=== PATIENT | male | born 1950 | race Caucasian/White ===

== ENCOUNTER 2017-05-23 11:50 | Inpatient (IN) | payer MEDICARE, MEDICAID ==
[~2017-05-23] VITALS: Ht 170.2 cm; Wt 59.0 kg
[2017-05-23 11:52] VITALS: BP 150/81
[2017-05-23] MEDS ORDERED: METFORMIN HCL500 MG PO (11:54)
[2017-05-23] MEDS ORDERED: ZOCOR20 MG PO (11:54)
[2017-05-23] MEDS ORDERED: CARVEDILOL12.5 MG PO (11:54)
[2017-05-23 12:10] LABS: ABSOLUTE BASOPHILS 0.1 thou/uL (0.0-0.2); ABSOLUTE EOSINOPHILS 0.2 thou/uL (0.0-0.7); ABSOLUTE LYMPHOCYTES 3.3 thou/uL (0.8-5.3); ABSOLUTE MONOCYTES 0.5 thou/uL (0.0-1.2); ABSOLUTE NEUTROPHILS 7.3 thou/uL (1.6-8.1); BASOPHILS 1.1 %; EOSINOPHILS 2.2 %; HEMATOCRIT 27.8 % (42.0-52.0); HEMOGLOBIN 9.1 gm/dL (14.0-18.0); LYMPHOCYTES 28.9 %; MCH 28.8 pg (26.0-34.0); MCHC 32.9 g/dL (28.0-37.0); MCV 87.5 fL (80.0-100.0); MPV 8.1 fl. (7.2-11.1); NUCLEATED RBCS 0 /100WBC; PLATELET COUNT* 322 thou/uL (150-400); POLYS 63.8 %; RBC 3.18 mil/uL (4.50-6.00); RDW-CV 16.5 % (10.5-14.5); WBC 11.4 thou/uL (4.0-11.0)
[2017-05-23 12:21] LABS: CALCIUM 8.2 mg/dL (8.5-10.1); CREATININE 2.9 mg/dL (0.6-1.3)
[2017-05-23 12:26] LABS: TOTAL BILIRUBIN 0.2 mg/dL (<0.1-1.0); TOTAL PROTEIN 7.9 g/dL (6.4-8.2)
[2017-05-23 13:34] VITALS: BP 126/73
[2017-05-23 14:13] VITALS: BP 113/70
[2017-05-23] MEDS ORDERED: ASPIR 8181 MG PO (14:17)
[2017-05-23] MEDS ORDERED: MELATONIN5 M1 PO (14:17)
--- NOTE | 2017-05-23 14:22 | NUR ---
PT ADMITTED TO ROOM 226 AROUND 1350 FOR HYPERKALEMIA AND ACUTE RENAL FAILURE. TELE SR 'S. 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 USES W/C. HAS PROSTHETIC, BUT LEFT IT AT HOME. PT HAS PERSONAL WHEELCHAIR WITH HIM ON ADMIT. PT STATES HE IS A 1PPD SMOKER AND REFUSES NICOTINE PATCH. PT STATES HE WILL GO OUTSIDE AND SMOKE WHILE A PT IN THE HOSPITAL. PT EDUCATED ON HOSPITALS SMOKING POLICY. PT STATES HE WILL BE NONCOMPLIANT WITH OUR POLICY. NO OTHER CONCERNS AT THIS TIME. CLWR. WCTM.
--- NOTE | 2017-05-23 16:10 | EKG ---
[place] [address] ELECTROCARDIOGRAM REPORT Name: ENEDINA CARY Room: [address] ADM IN .R.#: [id number] Admission: 05/23/17 Attend Phys: Ginger Walls Discharge: Date of : 54 Report #: [id number] THIS REPORT FOR: //name// [facility] ED Test Date: 2017-05-23 Test Time: 12:13:36 Pat Name: ENEDINA CARY Department: Room: [facility] Gender: Senior Staff Accountant: Mary BETHEA : 1950 Requested By: Delvin Pappas Order Number: [id number] MD: Elliot Carver Measurements Intervals [place] Rate: 89 P: 54 [place]: 167 QRS: 3 QRSD: 198 T: 73 QT: 368 QTc: 448 Interpretive Statements Sinus rhythm Probable left atrial enlargement No previous ECG available for comparison Electronically Signed On 05-23-2017 16:10:51 PRESSURE DISPATCHER by Elliot Carver [email or web address] <ELECTRONICALLY SIGNED> By: Elliot Carver MD, [facility] 05/23/17 1610 1213 1213 Elliot Carver MD, FACC /EPI
[2017-05-23 16:41] LABS: URINE BILIRUBIN NEGATIVE (Negative); URINE BLOOD TRACE (Negative); URINE CLARITY CLEAR; URINE COLOR YELLOW; URINE GLUCOSE-RANDOM TRACE (Negative); URINE KETONES NEGATIVE (Negative); URINE LEUKOCYTES-REFLEX TRACE (Negative); URINE NITRITE-REFLEX NEGATIVE (Negative); URINE PROTEIN TRACE (Negative); URINE UROBILINOGEN 0.2 E.U./dl (0.2-1.0)
--- NOTE | 2017-05-23 16:45 | NUR ---
PT NOT PROGRESSING TOWARDS GOALS THIS SHIFT. NEW ADMIT. NEW ORDER OBTAINED FOR PRN XANAX FOR PT'S AGITATION/ ANXIETY. PT COMPLIANT WITH CARE AT THIS TIME. IVF INFUSING. TELE SR W/ RATE IN THE 'S. NO OTHER CONCERNS AT THIS TIME. CLWR. WCTM.
[2017-05-23 16:48] LABS: SQUAMOUS 4-10 Moderate /LPF (0-3)
[2017-05-23 16:49] LABS: BACTERIA-REFLEX >30 Many /HPF (None Seen); CASTS None Seen /LPF (None Seen); CRYSTALS None Seen /LPF (None Seen); URINE RBC None Seen /HPF (0-2); URINE WBC-REFLEX >25 Many /HPF (0-5)
[2017-05-23 19:55] LABS: POTASSIUM 4.3 mmol/L (3.5-5.1)
[2017-05-23 20:00] VITALS: BP 108/60
[2017-05-24] VITALS: BP 116/66
--- NOTE | 2017-05-24 02:36 | NUR ---
PT ALERT ORIENTED. UP IN W/C IN ROOM. PT TRANSFERING HIMSELF IN AND OUT OF BED WITHOUT ASSIST. PT FALL RISK TOLD TO CALL FOR ASSIST. PT REPORTED A VERY LARGE BM AT SHIFT CHANGE. 1900 LABS k+4.3 AND CKMB 3.0. TELEMETRY SHOWS SR. PT REQUEST ALPRAZOLAM FOR HS. PT RESTING QUIETLY AFTER ALPRAZOLAM. WILL CONTINUE TO MONITOR.
--- NOTE | 2017-05-24 02:46 | NUR ---
PT NPO AT [place] FOR RENAL US IN AM.
[2017-05-24 04:00] VITALS: BP 114/68
[2017-05-24 07:30] LABS: ABSOLUTE BASOPHILS 0.1 thou/uL (0.0-0.2); ABSOLUTE EOSINOPHILS 0.4 thou/uL (0.0-0.7); ABSOLUTE LYMPHOCYTES 3.5 thou/uL (0.8-5.3); ABSOLUTE MONOCYTES 0.7 thou/uL (0.0-1.2); ABSOLUTE NEUTROPHILS 4.8 thou/uL (1.6-8.1); BASOPHILS 1.4 %; HEMATOCRIT 24.7 % (42.0-52.0); HEMOGLOBIN 8.2 gm/dL (14.0-18.0); LYMPHOCYTES 36.8 %; MCH 29.2 pg (26.0-34.0); MCHC 33.3 g/dL (28.0-37.0); MCV 87.6 fL (80.0-100.0); MONOCYTES 7.7 %; MPV 8.5 fl. (7.2-11.1); NUCLEATED RBCS 0 /100WBC; PLATELET COUNT* 271 thou/uL (150-400); POLYS 50.1 %; RBC 2.82 mil/uL (4.50-6.00); RDW-CV 16.4 % (10.5-14.5); WBC 9.5 thou/uL (4.0-11.0)
[2017-05-24 07:54] LABS: CALCIUM 7.3 mg/dL (8.5-10.1); POTASSIUM 4.8 mmol/L (3.5-5.1)
[2017-05-24 08:00] VITALS: BP 128/71
--- NOTE | 2017-05-24 08:30 | NUR ---
ASSUMED CARE OF PT AT 0730. PT SITTING IN PERSONAL WHEELCHAIR. PT A&0X4, IRRITABLE AND ANXIOUS STATING HE WANTS TO GO HOME AND THAT HIS POTASSIUM IS BETTER. PT ALSO REQUESTING COFFEE. EDUCATION GIVEN REGARDING KIDNEY FUNCTION AND NEED FOR NEPHROLOGY CONSULT WELL NPO AT THIS TIME FOR RENAL ULTRASOUND THIS AM. PT IN AGREEMENT FOR RENAL ULTRASOUND THIS AM BUT VERY HESITANT WITH CURRENT CARE PLAN. EDUCATION AND REINFORCEMENT GIVEN. PT DENIES ANY PAIN OR SHORTNESS OF BREATH AT THIS TIME. PT TRACING SR ON THE LICENSED MASTER SOCIAL WORKER. ON RA SAT UPPER 90'S. IVF. PENDING URINE CULTURE RESULTS. L SUN NOTED. PT STAYS IN HIS PERSONAL WHEELCHAIR AND REFUSES TO REPOSTIION. EDUCATION GIVEN. AM ASSESSMENT CHARTED. MEDICATIONS PER MAY. PT EDUCATED ON REPOSITIONING. HOURLY ROUNDING OBSERVED. BED IN LOW POSITION. CALL LIGHT WITHIN REACH. WILL CONTINUE PLAN OF CARE.
[2017-05-24 11:17] VITALS: BP 128/71
[2017-05-24 11:43] VITALS: BP 101/59
[2017-05-24] MEDS ORDERED: XANAX 0.5 MG0.5 MG PO (12:40)
[2017-05-24] MEDS ORDERED: GLYBURIDE 2.52.5 MG PO (12:49)
[2017-05-24] MEDS ORDERED: CIPRO250 M1 PO (12:52)
--- NOTE | 2017-05-24 14:13 | NUR ---
DISCHARGE ORDERS RECEIVED. DISCHARGE INSTRUCTIONS, CARE NOTES, SCRIPTS AND FOLLOW UP APPTS GIVEN TO PT. ADDITIONAL INFORMATION PRINTED FOR PT REGARDING POTASSIUM AND DIET RESTRICTIONS. PT COMMUNICATES UNDERSTANDING OF DISCHARGE TEACHING. IV AND COLLEGE SCOUTING COORDINATOR REMOVED. PT DISCHARGED WITH ALL BELONGINGS AND PAPERWORK VIA PERSONAL WHEELCHAIR WITH NURSING STAFF TO FAMILY OWN PERSONAL VEHICLE.
--- NOTE | 2017-06-12 10:40 | CON ---
[address] [address] CONSULTATION Name: ENEDINA CARY Room: [address] IN ..#: [id number] Admission: 05/23/17 Attend Phys: Ginger Walls Discharge: 05/24/17 Date of : 54 Report #: [id number] THIS REPORT FOR: //name// CC: Abigail Albarran DATE OF SERVICE: 05/24/2017 REQUESTING PHYSICIAN: Dr. Albarran. REASON FOR CONSULTATION: Acute kidney injury and hyperkalemia. HISTORY OF PRESENT ILLNESS: The patient is a 66-year-old white male with medical history significant for diabetes mellitus type 2, history of anemia, current history of peripheral artery disease and hypertension. He was admitted to the hospital because of elevated potassium level on the labs reported that were collected by his primary care physician. The patient's potassium was 6.7. He was on lisinopril and hydrochlorothiazide at home. He came to the Emergency Room, but he had no acute symptoms. He states today that he feels the same way he always feels and he wants to go home. He also admits eating 2 bananas a day. While in the hospital, he was found to have E. coli UTI and his lisinopril with hydrochlorothiazide was stopped. He was started on Coreg. PAST MEDICAL HISTORY: As mentioned earlier. SOCIAL HISTORY: He continues to smoke. FAMILY HISTORY: Positive for tobaccoism, hypertension and diabetes. REVIEW OF SYSTEMS: No chest pain, no shortness of breath, no nausea, no vomiting, no diarrhea, no constipation, no dysuria. He is not depressed. Again, he wants to go home. PHYSICAL EXAMINATION: GENERAL: He is awake, alert, oriented, no acute distress. VITAL SIGNS: Blood pressure is 130/70, afebrile. HEENT: Pupils are round. NECK: Supple. LUNGS: Decreased air movements. CARDIOVASCULAR: Regular rate. ABDOMEN: Soft, nontender. EXTREMITIES: He has a left above knee amputation and [place] [address] CONSULTATION Name: ENEDINA CARY Room: [address]#: [id number] Admission: 05/23/17 Attend Phys: Ginger Walls Discharge: 05/24/17 Date of : 54 Report #: [id number] ASSESSMENT: 1. Acute kidney injury with creatinine of 2.9, baseline is unknown. 2. Hyperkalemia, most likely due to acute kidney injury and lisinopril in the setting of urinary tract infection. His potassium is down to 4.8. He is started on ceftriaxone and his lisinopril with hydrochlorothiazide was stopped. 3. Unknown level of chronic kidney disease. 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 4. Diabetes mellitus type 2. 5. Peripheral artery disease. 6. Tobacco use. PLAN: 1. At this point, recommend to avoid MANISHA inhibitors and angiotensin receptor blockers. 2. Continue treatment for his UTI. 3. Continue with Coreg and monitor his blood pressure. 4. Educate him on low potassium diet. Thank you very much for asking my opinion on acute kidney injury and hyperkalemia of the patient. <ELECTRONICALLY SIGNED> By: Jaun Nichols MD 06/12/17 1040 1051 [id number] Nichols MD /nt
== END 2017-05-24 14:16 | disposition home or self-care (01) | DRG 682 ==
LOC: M.ERS 11:50 → M.2W 12:49 → M.TBA-ER 12:49 → M.2W 13:39
PROVIDERS: Emergency Medicine Emergency Medical Services; Internal Medicine Nephrology; ADMIT Internal Medicine
DX: N17.0 Acute kidney failure with tubular necrosis (principal); R65.11 Systemic inflammatory response syndrome (SIRS) of non-infectious origin with acute organ dysfunction; N39.0 Urinary tract infection, site not specified; E87.5 Hyperkalemia; B96.20 Unspecified Escherichia coli [E. coli] as the cause of diseases classified elsewhere; E11.51 Type 2 diabetes mellitus with diabetic peripheral angiopathy without gangrene; E11.22 Type 2 diabetes mellitus with diabetic chronic kidney disease; N18.9 Chronic kidney disease, unspecified; E78.5 Hyperlipidemia, unspecified; I12.9 Hypertensive chronic kidney disease with stage 1 through stage 4 chronic kidney disease, or unspecified chronic kidney disease; F17.210 Nicotine dependence, cigarettes, uncomplicated; Z79.82 Long term (current) use of aspirin; Z79.84 Long term (current) use of oral hypoglycemic drugs; Z79.899 Other long term (current) drug therapy

== ENCOUNTER → 2019-10-07 | Outpatient (CLI) | payer MEDICARE, MEDICAID ==
[~2019-10-07] MED LIST: ASPIR 8181 MG PO; CARVEDILOL12.5 MG PO; CIPRO250 M1 PO; GLYBURIDE 2.52.5 MG PO; MELATONIN5 M1 PO; METFORMIN HCL500 MG PO; XANAX 0.5 MG0.5 MG PO; ZOCOR20 MG PO
== END ==
LOC: M.CT 10-06 11:00
PROVIDERS: ATTEND Nurse Practitioner Family
DX: I71.02 Dissection of abdominal aorta (principal); R09.89 Other specified symptoms and signs involving the circulatory and respiratory systems; I70.202 Unspecified atherosclerosis of native arteries of extremities, left leg; I70.291 Other atherosclerosis of native arteries of extremities, right leg; K57.30 Diverticulosis of large intestine without perforation or abscess without bleeding; R06.03 Acute respiratory distress